=== PATIENT | female | born 2000 ===

== ENCOUNTER 2021-02-18 08:54 | Outpatient (CLI) | payer OTHER | END 2021-02-18 09:55 | disposition home or self-care (01) | LOC: PRENATAL 08:54 | PROVIDERS: ATTEND Obstetrics & Gynecology Maternal & Fetal Medicine | DX: O35.0XX1 Maternal care for (suspected) central nervous system malformation in fetus, fetus 1 (principal); O35.3XX1 Maternal care for (suspected) damage to fetus from viral disease in mother, fetus 1; O98.512 Other viral diseases complicating pregnancy, second trimester; Z36.89 Encounter for other specified antenatal screening; Z3A.25 25 weeks gestation of pregnancy ==

== ENCOUNTER 2021-02-23 16:44 | Outpatient (CLI) | payer OTHER ==
[2021-02-23] MEDS ORDERED: PRENATAL TABLE1 EAC1 PO (17:05)
== END 2021-02-23 22:55 | disposition home or self-care (01) ==
LOC: OBS/DEL 16:44
PROVIDERS: ATTEND Obstetrics & Gynecology
DX: O26.892 Other specified pregnancy related conditions, second trimester (principal); Z3A.26 26 weeks gestation of pregnancy

== ENCOUNTER 2021-02-27 22:57 | Outpatient (CLI) | payer OTHER ==
[~2021-02-27 22:57] MED LIST: PRENATAL TABLE1 EAC1 PO
== END 2021-02-28 12:29 | disposition home or self-care (01) ==
LOC: OBS/DEL 22:57
PROVIDERS: ATTEND Obstetrics & Gynecology
DX: O26.892 Other specified pregnancy related conditions, second trimester (principal); R10.2 Pelvic and perineal pain; Z3A.26 26 weeks gestation of pregnancy

== ENCOUNTER 2021-03-13 02:32 | Outpatient (CLI) | payer OTHER ==
[2021-03-13] MEDS ORDERED: IRON236 MG PO (04:56)
== END 2021-03-13 11:00 | disposition home or self-care (01) ==
LOC: OBS/DEL 02:32
PROVIDERS: ATTEND Obstetrics & Gynecology
DX: O23.43 Unspecified infection of urinary tract in pregnancy, third trimester (principal); O99.013 Anemia complicating pregnancy, third trimester; D64.89 Other specified anemias; Z3A.29 29 weeks gestation of pregnancy

== ENCOUNTER 2021-04-13 04:07 | Outpatient (CLI) | payer OTHER ==
[~2021-04-13 04:07] MED LIST changes: +IRON236 MG PO
== END 2021-04-13 16:21 | disposition home or self-care (01) ==
LOC: OBS/DEL 04:07
PROVIDERS: ATTEND Obstetrics & Gynecology
DX: O26.893 Other specified pregnancy related conditions, third trimester (principal); R10.2 Pelvic and perineal pain; Z3A.33 33 weeks gestation of pregnancy

== ENCOUNTER 2021-05-24 21:53 | Outpatient (CLI) | payer OTHER | END 2021-05-25 13:25 | disposition home or self-care (01) | LOC: OBS/DEL 21:53 | PROVIDERS: ATTEND Obstetrics & Gynecology | DX: O26.893 Other specified pregnancy related conditions, third trimester (principal); R10.2 Pelvic and perineal pain; Z3A.39 39 weeks gestation of pregnancy ==

== ENCOUNTER 2021-05-28 20:57 | Outpatient (CLI) | payer OTHER | END 2021-05-29 19:20 | disposition home or self-care (01) | LOC: OBS/DEL 20:57 | PROVIDERS: ATTEND Obstetrics & Gynecology | DX: O48.0 Post-term pregnancy (principal); Z3A.40 40 weeks gestation of pregnancy ==

== ENCOUNTER 2021-06-01 05:07 | Inpatient (IN) | payer OTHER ==
[~2021-06-01] VITALS: Ht 157.5 cm; Wt 3991.0 kg
== END 2021-06-03 15:58 | disposition home or self-care (01) | DRG 788 ==
LOC: LDR 05:07 → OB/GYN 05:07
PROVIDERS: ADMIT Obstetrics & Gynecology; ATTEND Obstetrics & Gynecology
PROC: 3E033VJ Introduction of Other Hormone into Peripheral Vein, Percutaneous Approach (ICD-10-PCS; 2021-06-01)
PROC: 4A1HXFZ Monitoring of Products of Conception, Cardiac Rhythm, External Approach (ICD-10-PCS; 2021-06-01)
PROC: 10D00Z1 Extraction of Products of Conception, Low, Open Approach (ICD-10-PCS; principal; 2021-06-01 12:30)
DX: O61.0 Failed medical induction of labor (principal); O65.9 Obstructed labor due to maternal pelvic abnormality, unspecified; O48.0 Post-term pregnancy; Z3A.40 40 weeks gestation of pregnancy; Z37.0 Single live birth